=== PATIENT | male | born 1950 | race African-American/Black ===

== ENCOUNTER 2023-08-21 07:55 | Day surgery (SDC) | payer OTHER ==
[2023-08-19 12:05] VITALS: BMI 26.5
[2023-08-21] MEDS ORDERED: LIDOCAINE 1% P/F 10 MG/ML VIAL ONE (08:17)
[2023-08-21] MEDS ORDERED: NEO/POLYMYX B SULF/DEXAMETH OPHTHALMIC 5ML BOTTLE ONE (08:17)
[2023-08-21] MEDS ORDERED: TETRACAINE 0.5% OPHTH SOLN 2 ML BOTTLE ONE (08:17)
[2023-08-21] MEDS ORDERED: CARBACHOL 0.01% INTRA-OCULAR 1.5 ML VIAL ONE (08:17)
[2023-08-21] MEDS ORDERED: BSS (NA/CA/MG/K) BALANCED SALT SOLUTION OPHTH SOLN 15 ML BOTTLE ONE (08:17)
[2023-08-21] MEDS: CYCLOPENTOLATE 2% OPHTH SOLN 2 ML BOTTLE ONE (08:20)
[2023-08-21] MEDS: CIPROFLOXACIN 0.3% EYE DROPS 5 ML BOTTLE ONE (08:20)
[2023-08-21] MEDS: PHENYLEPHRINE 2.5% OPTHALMIC DROP 2ML BOTTLE ONE (08:20)
[2023-08-21] MEDS: TROPICAMIDE 1% OPHTH SOLN 15 ML BOTTLE ONE (08:20)
[2023-08-21] MEDS ORDERED: MIDAZOLAM HCL 2 MG/2 ML SINGLE DOSE VIAL ONE ×2 (08:53→10:08)
[2023-08-21 10:43] VITALS: RESP 18
[2023-08-21 10:46] VITALS: BP 121/71; PULSE 69; TEMP 97.1
== END 2023-08-21 10:55 | disposition home or self-care (01) ==
LOC: FASU 07:55
PROVIDERS: ATTEND Ophthalmology
PROC: 08RJ3JZ Replacement of Right Lens with Synthetic Substitute, Percutaneous Approach (ICD-10-PCS; principal; 2023-08-21 09:59)
DX: H26.8 Other specified cataract (principal)
CPT/HCPCS: 66984; V2632

== ENCOUNTER 2024-12-04 07:22 | Emergency (ER) | payer OTHER ==
[2024-12-04 07:35] VITALS: BP 139/79; PULSE 72; RESP 18; TEMP 98.7; BMI 26.5
[2024-12-04 08:26] LABS: ABSOLUTE IMMATURE GRANULOCYTES 0.03 x10^3/uL (0.0-0.031); BASOPHILS # 0.04 x10^3/uL (0.01-0.08); EOSINOPHIL % 5.0 % (0.8-7.0); EOSINOPHILS # 0.38 x10^3/uL (0.04-0.54); MCHC 32.7 g/dl (32.3-36.5); MEAN CELL VOLUME 92.9 fl (79.0-92.2); MEAN PLT VOLUME 9.6 fl (9.4-12.4); MONOCYTE # 0.58 x10^3/uL (0.30-0.82); MONOCYTE % 7.6 % (5.3-12.2); RDW 11.9 % (12.2-16.6)
[2024-12-04 08:59] LABS: ALK PHOS 72.0 U/L (45-117); CO2 28.0 mmol/L (21-32); CREATININE 1.5 mg/dl (0.6-1.3); GLUCOSE,RANDOM 94.0 mg/dl (74-106); SGOT/AST 14.0 U/L (15-37); SGPT/ALT 14.0 U/L (7-52); TOT PROT 6.9 g/dl (6.4-8.2)
[2024-12-04 17:47] LABS: HIV INTERPRETATION NEGATIVE (NEGATIVE)
[2024-12-04 17:51] LABS: HCV DIAGNOSTIC IN-HOUSE W/RFLX NON-REACTIVE (NONREACTIVE)
== END 2024-12-04 09:12 | disposition home or self-care (01) ==
LOC: FER 07:22
DX: M19.011 Primary osteoarthritis, right shoulder (principal); M19.012 Primary osteoarthritis, left shoulder; M25.511 Pain in right shoulder; M25.512 Pain in left shoulder
CPT/HCPCS: 36415; 80053; 84484; 85025; 86803; 87389; 93005; 99284-25